=== PATIENT | female | born 1995 | race Caucasian/White ===

== ENCOUNTER → 2017-02-28 | Outpatient (REF) | LOC: WSOH 13:02 | DX: Z02.89 Encounter for other administrative examinations (principal) ==

== ENCOUNTER 2017-06-15 05:56 | Emergency (ER) | payer OTHER ==
[~2017-06-15] VITALS: Ht 165.1 cm; Wt 57.3 kg
[2017-06-15 06:02] VITALS: TEMP 99.1
[2017-06-15 06:58] LABS: BASO # 0.1 (0.0-0.2); BASO % 0.9 % (0.0-2.0); EOS # 0.1 (0.0-0.7); EOS % 2.4 % (0-4.0); GRAN # 2.9 (1.4-6.5); GRAN % 52.8 % (42.2-75.2); HEMATOCRIT 37.2 % (35.0-45.0); HEMOGLOBIN 12.8 g/dl (12.0-15.0); LYMPH # 1.9 (1.2-3.4); LYMPH % 35.3 % (20.0-51.0); MEAN CELL VOLUME 95 fl (80.0-95.0); MEAN CORPUSCULAR HEMOGLOBIN 33 pg (26.0-32.0); MEAN CORPUSCULAR HGB CONC 34 g/dl (33.0-37.0); MEAN PLATELET VOLUME 10.6 fl (7.4-10.4); MONO # 0.5 (0.1-0.6); MONO % 8.2 % (1.7-9.3); PLATELET COUNT 179 K/mm3 (130-400)
[2017-06-15 07:08] LABS: ALANINE AMINOTRANSFERASE 26 U/L (9-52); ALBUMIN 4.3 gm/dL (3.5-5.0); ALKALINE PHOSPHATASE 64 U/L (50-136); ANION GAP 9 mmol/L (7-16); AST,SGOT 34 U/L (15-37); BILIRUBIN,TOTAL 0.4 mg/dL (0.0-1.0); BLOOD UREA NITROGEN 19 mg/dL (7-17); CALCIUM 9.5 mg/dL (8.4-10.2); CARBON DIOXIDE 26 mmol/L (22-30); CHLORIDE 105 mmol/L (98-107); CREATININE, serum 0.77 mg/dL (0.52-1.25); GLUCOSE 68 mg/dL (74-106); LIPASE 56 U/L (23-300); POTASSIUM 3.9 mmol/L (3.4-5.0); SODIUM 140 mmol/L (137-145); TOTAL PROTEIN 6.6 gm/dL (6.4-8.2)
[2017-06-15] MEDS ORDERED: FLEXERIL 1010 MG/TAB PO (07:21)
[2017-06-15 07:23] LABS: TROPONIN-I < 0.012 ng/mL (0.000-0.034)
[2017-06-15 07:26] LABS: COLLECTION METHOD CLEAN CATCH
[2017-06-15 07:37] LABS: MUCOUS Present /lpf; PH 6 (5-8); URINE APPEARANCE Clear; URINE BACTERIA None Seen /hpf; URINE BILIRUBIN Negative (NEGATIVE); URINE BLOOD Negative (NEGATIVE); URINE COLOR Yellow; URINE GLUCOSE Negative (NEGATIVE); URINE KETONE Negative (NEGATIVE); URINE LEUKOCYTE ESTERASE Negative (NEGATIVE); URINE NITRATE Negative (NEGATIVE); URINE PROTEIN(semi-quant) Negative (NEGATIVE); URINE RBC 0-2 /hpf; URINE UROBILINOGEN Negative (NEGATIVE)
[2017-06-15 07:59] VITALS: BP 102/60; PULSE 52
== END 2017-06-15 08:00 | disposition home or self-care (01) ==
LOC: COL.ER 05:56
PROVIDERS: Emergency Medicine
DX: M54.6 Pain in thoracic spine (principal); Z82.49 Family history of ischemic heart disease and other diseases of the circulatory system

== ENCOUNTER 2018-04-21 01:40 | Emergency (ER) | payer OTHER ==
[~2018-04-21] VITALS: Ht 165.1 cm; Wt 59.1 kg
[~2018-04-21 01:40] MED LIST: FLEXERIL 1010 MG/TAB PO
[2018-04-21 01:49] VITALS: BP 126/84; PULSE 75; TEMP 98.3
[2018-04-21] MEDS ORDERED: MIRENA52 MG IY (01:53)
[2018-04-21] MEDS ORDERED: CRUTCHES MC (02:24)
== END 2018-04-21 03:00 | disposition home or self-care (01) ==
LOC: COL.ER 01:40
DX: S89.92XA Unspecified injury of left lower leg, initial encounter (principal); Z88.2 Allergy status to sulfonamides; Z96.22 Myringotomy tube(s) status; W19.XXXA Unspecified fall, initial encounter; X50.0XXA Overexertion from strenuous movement or load, initial encounter; Y92.009 Unspecified place in unspecified non-institutional (private) residence as the place of occurrence of the external cause
CPT/HCPCS: L1846